=== PATIENT | male | born 1970 | race African-American/Black ===

== ENCOUNTER → 2020-05-01 | Outpatient (CLI) | payer OTHER | LOC: MHCPAIN 14:46 | DX: M47.812 Spondylosis without myelopathy or radiculopathy, cervical region (principal); M54.2 Cervicalgia; G89.29 Other chronic pain; M54.12 Radiculopathy, cervical region | CPT/HCPCS: G0463 ==

== ENCOUNTER → 2020-05-03 | Outpatient (CLI) | payer OTHER | LOC: MHCPAIN 07:58 | DX: M47.812 Spondylosis without myelopathy or radiculopathy, cervical region (principal); M54.12 Radiculopathy, cervical region | CPT/HCPCS: J0461; J1100; Q9967 ==

== ENCOUNTER → 2020-05-14 | Outpatient (CLI) | payer OTHER | LOC: MHCPAIN 12:37 | DX: M47.812 Spondylosis without myelopathy or radiculopathy, cervical region (principal); M54.2 Cervicalgia; G89.29 Other chronic pain; M54.12 Radiculopathy, cervical region | CPT/HCPCS: G0463 ==

== ENCOUNTER 2021-01-23 15:45 | Outpatient (RCR) | payer OTHER | END 2021-01-25 08:13 | disposition home or self-care (01) | LOC: WSPT 15:45 | DX: M47.22 Other spondylosis with radiculopathy, cervical region (principal) ==